=== PATIENT | female | born 1980 | race Caucasian/White ===

== ENCOUNTER 2023-11-27 11:53 | Emergency (ER) | payer SELFPAY ==
[2023-11-27] VITALS (7 sets, daily range): BP systolic 114–141; BP diastolic 75–96; PULSE 81–95; BMI 43.6
[2023-11-27 13:13] LABS: % Eosinophils 1.4 % (0-6); % Immature Granulocytes 0.3 % (0-0.5); % Lymphocytes 25.6 % (20.5-51.1); % Monocytes 7.5 % (1.7-9.3); % Neutrophils 64.2 % (42.2-75.2); Absolute Basophils 0.1 10^3/uL (0-0.2); Absolute Eosinophils 0.1 10^3/uL (0-0.7); Absolute Lymphocytes 1.6 10^3/uL (1.2-3.4); Absolute Monocytes 0.5 10^3/uL (0.1-0.6); Hemoglobin 14.2 g/dL (12.0-16.0); Mean Corp Hgb Conc. 36.4 g/dL (33.0-37.0); Mean Corpuscular Hgb 32.2 pg (27.0-31.0); Mean Corpuscular Volume 88.4 fL (81.0-99.0); Nucleated Red Blood Cells % 0 %; Platelet Count 272 10^3/uL (130-400); Red Blood Cell Count 4.41 10^6/uL (4.20-5.40); Red Cell Dist. Width 12.7 % (11.5-14.5); White Blood Cell Count 6.2 10^3/uL (4.8-10.8)
[2023-11-27 13:23] LABS: HCG, Serum Qualitative Screen Negative
[2023-11-27 13:26] LABS: ALT (SGPT) 20 U/L (0-35); AST (SGOT) 29 U/L (14-36); Albumin 4.1 g/dl (3.5-5.0); Alkaline Phosphatase 59 U/L (38-126); Blood Urea Nitrogen 13 mg/dl (7-17); Calcium 9.6 mg/dl (8.4-10.2); Carbon Dioxide 24 mmol/L (22-30); Chloride 105 mmol/L (98-107); Glucose 97 mg/dl (70-99); Potassium 4.4 mmol/L (3.5-5.1); Sodium 134 mmol/L (135-145); Total Bilirubin 0.7 mg/dl (0.2-1.3); Total Protein 7.1 g/dl (6.3-8.2); eGFR > 60.00
--- NOTE | 2023-11-27 14:20 | EDRN ---
Pt OOB to [facility] and back w/ assist of a tech.
--- NOTE | 2023-11-27 14:58 | ED.GENMED ---
History of Present Illness
General
Chief Complaint: Fall
Source: patient and spouse
Exam Limitations: none
Time Seen by Provider: 11/27/23 12:13
Nursing documentation reviewed up to this point in time: agreed with
Travel History
Have you had any contact with someone who has COVID-19?: No
Do you have any symptoms of coronavirus? Fever > 100 degrees, chills, cough, shortness of breath, sore throat, loss of taste or smell, muscle aches, or headache?: No
History of Present Illness
History of Present Illness:
43-year-old female with past medical history of previous portal vein thrombosis currently on Xarelto presenting to the emergency department today after a fall at work where she claims that she abruptly lost consciousness and the next thing she knew
she was on the ground. She was told that she fell and hit her right elbow she may have hit her head as well. She had no specific prodrome. No specific confusion afterward. Has had ongoing nausea and some lightheadedness since has had right-sided
elbow pain as well. Denies significant neck pain. Denies similar symptoms in the past no chest pain or palpitations
Past History
Past History
ED Past Medical History: GERD and Other (Portal venous clot)
ED Past Surgical History: Cholecystectomy and Gynecological
Social History
Tobacco: Non-smoker
Alcohol: None
Drug: None
Personal:
Living: with family
Employment: Not employed
Family History
Family History: Other (Noncontributory)
Review of Systems
Review of Systems
Allergies reviewed?: Yes
All Other Systems: ROS reviewed and negative except as documented in HPI and ROS
Phy Exam
Physical Exam
Physical Exam:
GENERAL: Alert , in no apparent distress
EYE: pupils equal and reactive
NECK: Supple, no significant adenopathy.
ENT: o/p clr, mmm.
CARDIAC: Regular rate and rhythm .
LUNGS: Clear breath sounds bilaterally, no acute respiratory distress, no wheezes/rales/rhonchi
ABDOMEN: Soft, without focal tenderness, no r/g, no cvat
NEUROLOGICAL: Alert and oriented, no focal neuro deficits 5 out of 5 upper and lower extremity strength normal sensation with palpating bilaterally normal finger-nose and agao-cc-mamd no pronator drift
SKIN: Warm and dry, skin intact.
MUSCULOSKELETAL: Tender palpation to the right elbow at the olecranon increased discomfort with any movement of the elbow. No edema, well perfused.
PSYCH: Normal and appropriate interaction.
Course
Orders/Labs/Results
Orders:
Orders
11/27/23 12:51
EKG [Electrocardiogram (*1)] Urgent
Reason for Study: Chest Pain
CT Cervical Spine W/o Iv Contr Urgent
Comment:
Reason For Exam: fall neck pain
CT Head W/o Iv Contrast Urgent
Comment:
Reason For Exam: fall hit head
EKG- Treatment ONCE
Test Result ONCE
11/27/23 12:52
CR Elbow - Right Min 3 Views Urgent
Comment:
Reason For Exam: elbow pain
CR Shoulder, Trauma - Right Urgent
Comment:
Reason For Exam: fal lshoulder pain
11/27/23 13:03
Beta Hcg Serum Qualitative Screen [HCG, Serum Qualitative Screen] Urgent
CBC/With Diff [Complete Blood Count/With Diff] Urgent
CMP [Comprehensive Metabolic Panel] Urgent
TSH Urgent
Comment: ADD
11/27/23 15:39
Add On- LAB Urgent
Tests Added?: tsh
Orthostatic VS- Treatment ONCE
Abnormal Lab Results
11/27/23
13:03
MCH 32.2 H pg
(27.0-31.0)
Sodium 134 L mmol/L
(135-145)
11/27/23 13:03
11/27/23 13:03
Vital Signs
Initial and Last Documented VS:
Initial Vital Signs
Temp Pulse Resp BP Pulse Ox
97.8 F 86 18 141/96 95
11/27/23 12:03 11/27/23 12:03 11/27/23 12:03 11/27/23 12:03 11/27/23 12:03
Last Documented Vital Signs
Temp Pulse Resp BP Pulse Ox
97.8 F 85 17 132/84 96
11/27/23 12:03 11/27/23 15:15 11/27/23 15:15 11/27/23 15:14 11/27/23 15:15
MDM/Problems Addressed
MDM/Problems Addressed:
43-year-old female presenting to the emergency department today with concerns of an episode where she lost consciousness had no specific prodrome. She was standing and walking to the kitchen at work and her next memory she is on the ground. She
had elbow pain and head pain. She has had some ongoing nausea and lightheadedness. Here she is tenderness to olecranon otherwise normal neurologic evaluation normal heart and lung exam. No visible signs of trauma to the head or neck. EKG is
normal, nonischemic. CT scan negative x-ray without acute abnormalities. Elbow and shoulder without emergent fracture. Patient appears stable for discharge return precautions given advised for close outpatient follow-up.
*Critical Care Note
Total Time (30-74mins, 75-104mins- exclusive of procedures): Not Applicable
ED Attending Note
-
Portions of this chart may have been created with voice recognition software.� Occasional wrong word or��sound alike� substitutions may have occurred due to the inherent limitations of voice recognition software.
Discharge Plan
Departure
Patient Disposition: Home (Routine Discharge)
Date of Disposition: 11/27/23
Time of Disposition: 16:21
Patient with high blood pressure during this ER visit?: No
Condition: Good
Covid-19: Not Applicable
Discharge Problem:
Syncope, Elbow pain
Instructions: Syncope (Fainting) (DC)
Prescriptions:
No Action
Xarelto 20 mg Tablet
20 mg PO DAILY
diazepam [Valium] 5 mg tablet
5 mg PO TID PRN (Reason: muscle spasm) Qty: 10 0RF
pantoprazole [Protonix] 20 mg tablet,delayed release (DR/EC)
20 mg PO BID Qty: 60 0RF
Referrals:
Jennifer Mccullough MD [Family Provider] -
Martha Walker I., [Active] - Follow up in 5-7 days
Activity Restrictions/Additional Instructions:
You came to the emergency department today after passing out. Here you had a reassuring evaluation. Please start to move the right arm as able over the next few days. Please follow-up with orthopedics as needed. Return to the emergency
department for any worsening, new or concerning symptoms.
Interventions
Interventions:
*Risk Screen - Suicide Last Done: 11/27/23 13:28
*General Assessment Last Done: 11/27/23 13:28
*Neglect/Abuse Screening Last Done: 11/27/23 13:28
ED- Fall Risk Assessment Last Done: 11/27/23 13:28
*ED COVID-19 Vaccine History Last Done: 11/27/23 12:03
ED-Musculoskeletal Assessment Last Done: 11/27/23 13:33
ED- Neurological Assessment Last Done: 11/27/23 13:33
ED-Skin Assessment Last Done: 11/27/23 13:33
Discharge Date and Time
Print Language: MALAGASY
[2023-11-27 17:00] LABS: TSH 1.83 uIU/ml (0.47-4.68)
== END 2023-11-27 16:47 | disposition home or self-care (01) ==
LOC: EMR 11:53
PROVIDERS: Physician Assistant; EMERGENCY PHYSICIAN Emergency Medicine; FAMILY PHYSICIAN Family Medicine
DX: R55 Syncope and collapse (principal); M25.521 Pain in right elbow; M25.511 Pain in right shoulder; R51.9 Headache, unspecified; R11.0 Nausea; W19.XXXA Unspecified fall, initial encounter; Y93.89 Activity, other specified; Y92.89 Other specified places as the place of occurrence of the external cause; Y99.0 Civilian activity done for income or pay; K52.9 Noninfective gastroenteritis and colitis, unspecified; K21.9 Gastro-esophageal reflux disease without esophagitis; Z79.01 Long term (current) use of anticoagulants; Z86.718 Personal history of other venous thrombosis and embolism; Z86.16 Personal history of COVID-19; Z90.49 Acquired absence of other specified parts of digestive tract
CPT/HCPCS: 99285; 70450; 72125; 73030; 73080; 80053; 84443; 84703; 85025; 93005